=== PATIENT | male | born 1930 | race Caucasian/White ===

== ENCOUNTER 2016-10-05 10:42 | Emergency (ER) | payer MEDICARE, OTHER ==
--- NOTE | 2016-10-05 12:35 | ED ---
Lower Extremity - HPI Summary HPI Summary: Patient presents to ED 1 day s/p mechanical fall with left knee and ankle pain. Unknown if he twisted his ankle. He states he may have had fell directly onto the left knee, but denies anterior knee pain. Pain is discretely located over the lateral knee with swelling behind the left knee. He states the swelling was acute onset after injury, but has been intermittent for many years , usually after using the extremity too much. He has been ambulating, but with mild amount of pain. Denies pain medications or NSAIDS. Appt with Dr. Diaz "in a few weeks." He takes a baby aspirin daily and denies SOB or chest pain. Denies numbness, tingling, temperature or color changes to the area. - History of Current Complaint Chief Complaint: EDExtremityLower Stated Complaint: FALL/LT LEG PAIN Time Seen by Provider: 10/05/16 11:04 Hx Obtained From: Patient Mechanism Of Injury: Fall From A Standing Position Onset of Pain: Immediate Onset/Duration: Days Severity Initially: Mild Severity Currently: Mild Pain Intensity: 5 Pain Scale Used: 0-10 Numeric Timing: Constant Location: Is Discrete @ - lateral left knee with mild swelling associated Aggravating Factor(s): Standing, Ambulation, Weight Bearing Alleviating Factor(s): Rest Able to Bear Weight: Yes - Risk Factors Gout Risk Factors: Age Over 40, Male DVT Risk Factors: Negative Septic Arthritis Risk Factor: Negative - Allergies/Home Medications Allergies/Adverse Reactions: Allergies Allergy/AdvReac Type Severity Reaction Status Date / Time Epoetin [From Epogen] Allergy Severe Anaphylatic Verified 10/05/16 10:44 Shock Atorvastatin Allergy See Comment Verified 10/05/16 10:44 Oxycodone [From Percocet] Allergy See Comment Verified 10/05/16 10:44 PMH/Surg Hx/FS Hx/Imm Hx Previously Healthy: Yes - see below Endocrine/Hematology History: Reports: Hx Anticoagulant Therapy, Hx Thyroid Disease - hypothyroid Denies: Hx Diabetes Cardiovascular History: Reports: Hx Aneurysm - AAA, Hx Congestive Heart Failure , Hx Hypercholesterolemia, Hx Hypertension, Other Cardiovascular Problems/ Disorders - carotid stenosis Denies: Hx Deep Vein Thrombosis, Hx Myocardial Infarction, Hx Pacemaker/ICD Respiratory History: Reports: Hx Chronic Obstructive Pulmonary Disease (COPD) - Suspect with smoking history., Hx Sleep Apnea Denies: Hx Asthma, Hx Lung Cancer, Hx Pneumonia, Hx Pulmonary Embolism GI History: Reports: Hx Gall Bladder Disease, Hx Ulcer, Other GI Disorders - hx ulcer Denies: Hx Gastrointestinal Bleed History: Reports: Hx Dialysis - 2000 failure post surgery with dialysis for 2 -3 months per pt, Hx Renal Disease - He was on dialysis in the past around the time he had his AAA repairl., Other Problems/Disorders - renal failure 1999 per pt 2-3 months post surgery Denies: Hx Kidney Stones Musculoskeletal History: Reports: Hx Arthritis, Other Musculoskeletal History - neuropathy, back surgery Sensory History: Reports: Hx Contacts or Glasses, Hx Hearing Aid, Hx Hearing Problem Opthamlomology History: Reports: Hx Contacts or Glasses Neurological History: Reports: Hx Nerve Disease - s/t aneurism sx, Other Neuro Impairments/Disorders Denies: Hx Dementia, Hx Migraine, Hx Seizures, Hx Transient Ischemic Attacks (TIA) Psychiatric History: Denies: Hx Anxiety, Hx Depression, Hx Schizophrenia, Hx Bipolar Disorder - Cancer History Cancer Type, 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 RIGHT shoulder surgery Infectious Disease History: No Infectious Disease History: Denies: Traveled Outside the [place] in Last 30 Days - Family History Known Family History: Positive: Cardiac Disease - Social History Occupation: Retired Lives: With Family Alcohol Use: None Hx Substance Use: No Substance Use Type: Reports: None Hx Tobacco Use: Yes Smoking Status (MU): Former Smoker Review of Systems Constitutional: Negative Eyes: Negative Cardiovascular: Negative Respiratory: Negative Positive: no symptoms reported, see HPI Positive: Arthralgia, Myalgia Skin: Negative Neurological: Negative All Other Systems Reviewed And Are Negative: Yes Physical Exam - Summary Physical Exam Summary: Thorough physical exam was performed, focusing on knee special tests. Pain on palpation over lateral aspect and superior aspect of knee with mild amount of effusion. Due to patient pain around injury, physical exam was limited. Valgus and varus force without pain. No posterior sag sign, -posterior drawer test, - anterior drawer test. Quadriceps active test negative. Mcmurrys test not performed d/t patients instability. No laxity in the joint noted. No temperature change or pallor noted bilaterally. No ecchymosis noted over knee. No lesion or disruption of skin is seen. Able to bear weight. Pulses intact bilaterally. Triage Information Reviewed: Yes Vital Signs On Initial Exam: Initial Vitals Temp Pulse Resp BP Pulse Ox 98.4 F 42 16 133/49 97 10/05/16 10:45 10/05/16 10:45 10/05/16 10:45 10/05/16 10:45 10/05/16 10:45 Vital Signs Reviewed: Yes Appearance: Positive: Well-Appearing, Well-Nourished Skin: Positive: Warm, Skin Color Reflects Adequate Perfusion Head/Face: Positive: Normal Head/Face Inspection Eyes: Positive: EOMI, GLENNY, Conjunctiva Clear Neck: Positive: Supple, No Lymphadenopathy Respiratory/Lung Sounds: Positive: Clear to Auscultation, Breath Sounds Present Cardiovascular: Positive: Normal, RRR, Pulses are Symmetrical in both Upper and Lower Extremities Musculoskeletal: Positive: Pain @ - lateral left knee with mild swelling associated Neurological: Positive: Sensory/Motor Intact, Alert, Oriented to Person Place, Time, Speech Normal Psychiatric: Positive: Normal AVPU Assessment: Alert Diagnostics - Vital Signs Vital Signs Temp Pulse Resp BP Pulse Ox 10/05/16 11:04 98.4 F 51 16 133/49 99 10/05/16 10:45 98.4 F 42 16 133/49 97 - Laboratory Lab Statement: Any lab studies that have been ordered have been reviewed, and results considered in the medical decision making process. Lower Extremity Course/Dx - Course Course Of Treatment: Patient sent to imaging. Xray negative for fracture or other acute findings. Soft tissue swelling noted over the knee. Knee was page wrapped to patient comfort to allow for immobilization for this period of time. Patient given orthopedic follow up in 5-7 days. Encouraged Ibuprofen 600mg three times daily with meals for pain. Return precautions given. Educated patient regarding knee injuries and healing time and the possibility of further evaluation and imaging as orthopedist sees fit. - Diagnoses Differential Diagnosis/HQI/PQRI: Positive: Contusion, Fracture (Closed), Fracture (Open), Sprain Provider Diagnoses: Knee contusion Discharge - Discharge Plan Condition: Stable Disposition: HOME Patient Education Materials: Swollen Knee Joint (ED), Knee Pain (ED) Referrals: Maricarmen Moyer MD [Primary Care Provider] - Additional Instructions: Follow up with Dr. Diaz next week. Continue with your medications as directed
--- NOTE | 2016-10-05 13:11 | RAD ---
Indication: Left ankle swelling. 3 views of left ankle demonstrates no fracture. Ankle mortise is intact. No other bone or joint abnormality is identified. IMPRESSION: No fracture of the left ankle is noted.
--- NOTE | 2016-10-05 13:13 | RAD ---
Indication: Left knee pain. 4 views of left knee demonstrates joint space narrowing in the medial compartment with osteophyte formation. There is a small joint effusion noted. Degenerative changes of the patellofemoral joint is noted. IMPRESSION: Degenerative changes medial compartment left knee without fracture. Small joint effusion and degenerative changes of the patellofemoral joint is noted.
[2016-10-05 13:48] VITALS: BP 126/54
== END 2016-10-05 13:47 | disposition home or self-care (01) ==
LOC: ED 10:42
DX: S80.02XA Contusion of left knee, initial encounter (principal); W19.XXXA Unspecified fall, initial encounter; Y93.9 Activity, unspecified; Y92.9 Unspecified place or not applicable; Z87.891 Personal history of nicotine dependence
CPT/HCPCS: 99282

== ENCOUNTER 2017-08-09 17:12 | Inpatient (IN) | payer MEDICARE, OTHER ==
[2017-08-09] MEDS ORDERED: NS 0.9% 1000 ML* 1,000 ML IV ONE (17:28)
--- NOTE | 2017-08-09 17:44 | RAD ---
Indication: Stroke weakness. CT of the brain was performed without IV contrast. Ventricular structures are midline. No midline shift is noted. There is central and cortical atrophy noted. Periventricular lucency consistent with chronic ischemic White matter change is noted. No intracranial mass or hemorrhage is noted. Mastoid air cells are well aerated. Mucosal thickening with air-fluid levels are noted in the maxillary sinuses bilaterally. IMPRESSION: No intracranial mass or hemorrhage is noted. Chronic ischemic White matter change is noted. Bilateral maxillary sinusitis. Findings discussed with Dr. Tucker at 1740 hours.
[2017-08-09] MEDS ORDERED: niCARdipine 0.1MG/ML IVPREMIX* 20 MG/200 ML BAG IV ONE (17:57)
[2017-08-09] MEDS ORDERED: Iodixanol* (CONTRAST) 320 MG/ML 100 ML SDV IV ONE (18:07)
[2017-08-09 18:08] LABS: Urine Appearance Clear; Urine Blood 1+ (Negative); Urine Color Yellow; Urine Ketones Negative (Negative); Urine Protein 1+(30 mg/dL) (Negative); Urine Red Blood Cell 1+(3-5/hpf) (Absent); Urine Specific Gravity 1.014 (1.010-1.030); Urine Urobilinogen Negative (Negative); Urine White Blood Cell Trace(0-5/hpf) (Absent)
[2017-08-09 18:09] LABS: Hematocrit 33 % (42-52); Hemoglobin 10.9 g/dl (14.0-18.0); Mean Corpuscular HGB Conc 33 g/dl (31-36); Mean Corpuscular Hemoglobin 32 pg (27-31); Mean Corpuscular Volume 94 fL (80-94); Mean Platelet Volume 8.4 um3 (7.4-10.4); Platelet Count 174 10^3/ul (150-450); Red Blood Count 3.47 10^6/ul (4.0-5.4); Red Cell Distribution Width 16 % (10.5-15); White Blood Count 14.5 10^3/ul (3.5-10.8)
[2017-08-09] MEDS ORDERED: Acetaminophen TAB* 325 MG PO ONE (18:14)
[2017-08-09] MEDS ORDERED: Acetaminophen TAB* 325 MG ONE (18:16)
[2017-08-09 18:26] LABS: EGFR Non-African American 58.2 (>60)
[2017-08-09] MEDS ORDERED: Piperacillin/Tazobac ADVAN(*) 3.375 GM in NS 0.9% 100 ML* 100 ML IVPB ONE (18:45)
--- NOTE | 2017-08-09 18:48 | RAD ---
Indication: Cold grade. Single frontal view of the chest performed at 1813 hours was reviewed. Comparison is made with previous exam dated September 16, 2015. No mediastinal shift is noted. Heart is of normal size and configuration. Lung pizano appear clear. Patient is status post transsternal thoracotomy. IMPRESSION: NO ACTIVE CARDIOPULMONARY DISEASE IS NOTED.
[2017-08-09 18:52] LABS: ABS Basophils 0.1 10^3/ul (0-0.2); ABS Eosinophils 0.1 10^3/ul (0-0.6); ABS Lymphocytes 0.6 10^3/ul (1.0-4.8); ABS Monocytes 0.7 10^3/ul (0-0.8); ABS Nucleated RBC 0 10^3/ul; Eosinophil % 0.8 % (0-6); Lymphocyte % 4.5 % (25-47); Nucleated Red Blood Cells % 0
[2017-08-09 18:53] LABS: INR 1.01 (0.77-1.02)
--- NOTE | 2017-08-09 18:55 | RAD ---
Indication: Stroke. Contrast: Administered 80.3 ml of VISAPAQUE 320 mg/ml CTA of the neck and head was performed after IV contrast administration. Coronal and sagittal reconstructed images were obtained. Comparison is made with previous exam dated October 29, 2012. Atherosclerotic aortic arch is noted. Origins of the great vessels are unremarkable although there is marked tortuosity of the innominate artery. The common carotid arteries bilaterally are grossly unremarkable. Minimal calcific plaque is noted in the midportion of the common carotid arteries bilaterally. Calcification of the origins of the internal carotid arteries is noted. The vertebral arteries demonstrates no significant stenosis. No evidence of carotid artery or vertebral artery dissection is noted. The intracranial circulation demonstrates intracavernous portion of the internal carotid artery to be atherosclerotic. The anterior and middle cerebral arteries are unremarkable. No aneurysmal dilatation or branch occlusion is noted. Basilar artery and posterior cerebral arteries also demonstrates no evidence of branch occlusion of the posterior cerebral artery. There appears to be a basilar tip in the measuring 7 x 5 mm. No branch occlusion is noted. Emphysematous changes are noted. 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 This is unchanged from October 29, 2012. No branch occlusion is identified. Atherosclerosis of the origins of the internal carotid arteries bilaterally.
[2017-08-09] MEDS ORDERED: Levofloxacin 750 MG IVPREMIX(* 750 MG/150 ML BAG IVPB ONE (19:05)
[2017-08-09] MEDS ORDERED: Vancomycin(*) 1,250 MG in NS 0.9% 250 ML* 250 ML IVPB ONE (19:05)
--- NOTE | 2017-08-09 19:48 | ED ---
Tejas Fegruson Stephanie, scribed for Fermin Tucker MD on 08/09/17 at 1734 . Neurological HPI - HPI Summary HPI Summary: The pt is an 86 y/o M BIBA to the ED with c/o weakness that began on . Symptoms include speech difficulty and bilateral UE and LE heaviness. He denies CP, nausea and abd pain. - History of Current Complaint Stated Complaint: WEAKNESS/FEVER Time Seen by Provider: 08/09/17 17:21 Hx Obtained From: Patient Onset/Duration: Sudden Onset, Started days ago - 2, Still Present Timing: Constant Current Severity: Mild Pain Intensity: 0 Pain Scale Used: 0-10 Numeric Character: Weak, Motor Weakness, Impaired Speech Aggravating: Unknown Alleviating: Nothing Associated Signs and Symptoms: Positive: Confusion, Weakness, Impaired Speech. Negative: Nausea/Vomiting, Chest Pain - Additional Pertinent History Primary Care Physician: HUGO - Allergy/Home Medications Allergies/Adverse Reactions: Allergies Allergy/AdvReac Type Severity Reaction Status Date / Time MS Epoetin Frank [From Epogen] Allergy Severe Anaphylatic Verified 10/05/16 10:44 Shock MS Atorvastatin Allergy See Comment Verified 10/05/16 10:44 [Atorvastatin] MS Oxycodone [From Percocet] Allergy See Comment Verified 10/05/16 10:44 Home Medications: Home Medications Acetaminophen [Tylenol Extra Strength] 500 mg PO BID PRN 08/09/17 [History Confirmed 08/09/17] Aspirin EC TAB* [Ecotrin EC Low Dose 81 MG*] 81 mg PO QAM 08/09/17 [History Confirmed 08/09/17] Atenolol TAB* [Tenormin TAB* 50 MG] 25 mg PO DAILY 08/09/17 [History Confirmed 08/09/17] Cetirizine* [ZyrTEC 10 MG TAB*] 10 mg PO QPM PRN 08/09/17 [History Confirmed 09/19] Clopidogrel TAB* [Plavix TAB*] 75 mg PO QPM 08/09/17 [History Confirmed 08/09/17 ] Docusate CAP* [Colace Cap*] 250 mg PO QPM 08/09/17 [History Confirmed 08/09/17] Duloxetine HCl 40 mg PO QPM 08/09/17 [History Confirmed 08/09/17] Fluticasone NASAL SPRAY 50MCG* [Flonase NASAL SPRAY 50MCG*] 2 spray BOTH NARES DAILY PRN 08/09/17 [History Confirmed 08/09/17] Gabapentin CAP(*) [Neurontin 400 mg CAP(*)] 900 mg PO BID 08/09/17 [History Confirmed 08/09/17] L.acidoph,Paracasei, B.lactis [Probiotic] 1 each PO QAM 08/09/17 [History Confirmed 08/09/17] Levothyroxine TAB* [Synthroid TAB*] 112 mcg PO QAM 08/09/17 [History Confirmed 08/09/17] Losartan TAB* [Cozaar TAB*] 50 mg PO QAM 08/09/17 [History Confirmed 08/09/17] Multivitamins/Minerals TAB* [Theragran/minerals TAB*] 1 tab PO QAM 08/09/17 [ History Confirmed 08/09/17] Nitroglycerin TAB 0.4 MG* 0.4 mg SL Q5M PRN 08/09/17 [History Confirmed 08/09/17 ] Pantoprazole TAB (NF) [Protonix TAB (NF)] 40 mg PO QAM 08/09/17 [History Confirmed 08/09/17] Rosuvastatin (NF) [Crestor (NF)] 20 mg PO QPM 08/09/17 [History Confirmed ] PMH/Surg Hx/FS Hx/Imm Hx Endocrine/Hematology History: Reports: Hx Anticoagulant Therapy, Hx Thyroid Disease - hypothyroid Denies: Hx Diabetes Cardiovascular History: Reports: Hx Aneurysm - AAA, Hx Congestive Heart Failure , Hx Hypercholesterolemia, Hx Hypertension, Other Cardiovascular Problems/ Disorders - carotid stenosis Denies: Hx Deep Vein Thrombosis, Hx Myocardial Infarction, Hx Pacemaker/ICD Respiratory History: Reports: Hx Chronic Obstructive Pulmonary Disease (COPD) - Suspect with smoking history., Hx Sleep Apnea Denies: Hx Asthma, Hx Lung Cancer, Hx Pneumonia, Hx Pulmonary Embolism GI History: Reports: Hx Gall Bladder Disease, Hx Ulcer, Other GI Disorders - hx ulcer Denies: Hx Gastrointestinal Bleed History: Reports: Hx Dialysis - 2000 failure post surgery with dialysis for 2 -3 months per pt, Hx Renal Disease - He was on dialysis in the past around the time he had his AAA repairl., Other Problems/Disorders - renal failure 1999 per pt 2-3 months post surgery Denies: Hx Kidney Stones Musculoskeletal History: Reports: Hx Arthritis, Other Musculoskeletal History - neuropathy, back surgery Sensory History: Reports: Hx Contacts or Glasses, Hx Hearing Aid, Hx Hearing Problem Opthamlomology History: Reports: Hx Contacts or Glasses Neurological History: Reports: Hx Nerve Disease - s/t aneurism sx, Other Neuro Impairments/Disorders Denies: Hx Dementia, Hx Migraine, Hx Seizures, Hx Transient Ischemic Attacks (TIA) Psychiatric History: Denies: Hx Anxiety, Hx Depression, Hx Schizophrenia, Hx Bipolar Disorder - Cancer History Cancer Type, 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 RIGHT shoulder surgery Infectious Disease History: No Infectious Disease History: Denies: Traveled Outside the [place] in Last 30 Days - Family History Known Family History: Positive: Cardiac Disease - Social History Occupation: Retired Lives: With Family Alcohol Use: None Hx Substance Use: No Substance Use Type: Reports: None Hx Tobacco Use: Yes Smoking Status (MU): Former Smoker Review of Systems Positive: Fever Negative: Chest Pain Negative: Abdominal Pain, Nausea Neurological: Other - Bilateral UE and LE heaviness Positive: Weakness All Other Systems Reviewed And Are Negative: Yes Physical Exam - Summary Physical Exam Summary: Appearance: Well appearing, no pain distress Skin: warm, dry, reflects adequate perfusion Head/face: normal Eyes: EOMI, GLENNY ENT: normal Neck: supple, non-tender Respiratory: CTA, breath sounds present Cardiovascular: Occasional irregularity of the heart with a soft murmur heard best at the apex, strong pulses. Abdomen: non-tender, soft Bowel Sounds: present Musculoskeletal: normal, strength/ROM intact Neuro: alert with mild aphasia difficulty with word finding, can name simple objects, weakness with L greater than R. Triage Information Reviewed: Yes Vital Signs On Initial Exam: Initial Vitals Temp Pulse Resp BP Pulse Ox 102.6 F 87 31 198/66 98 08/09/17 17:15 08/09/17 17:15 08/09/17 17:15 08/09/17 17:15 08/09/17 17:15 Vital Signs Reviewed: Yes Procedures - Lumbar Puncture Midline Position: Sitting Aseptic Technique: Local Anesthesia, Lidocaine Anesthesia Used: 1.0% Lido Spinal Needle Used: 22 Gauge Lumbar Puncture Note: The patient and his were consented prior to the procedure. A timeout was performed. The patient was placed sitting. He has a history of lumbar fusion. A level higher than the effusion was selected. I initially tried a L3-L4 and was unsuccessful. L2-L3 with successful. 3 tubes were filled. First tube was initially cloudy but then the sample cleared. Fluid was clear and colorless at last tube. He tolerated this well and there were no complications. Sample was sent to the lab for analysis. Diagnostics - Vital Signs Vital Signs Temp Pulse Resp BP Pulse Ox 08/09/17 17:15 102.6 F 87 31 198/66 98 - Laboratory Lab Results: Lab Results 08/09/17 08/09/17 08/09/17 Range/Units 17:52 17:56 17:56 WBC 14.5 H (3.5-10.8) 10^3/ul RBC 3.47 L (4.0-5.4) 10^6/ul Hgb 10.9 L (14.0-18.0) g/dl Hct 33 L (42-52) % MCV 94 (80-94) fL MCH 32 H (27-31) pg MCHC 33 (31-36) g/dl RDW 16 H (10.5-15) % Plt Count 174 (150-450) 10^3/ul MPV 8.4 (7.4-10.4) um3 Neut % (Auto) 89.7 H (38-83) % Lymph % (Auto) 4.5 L (25-47) % [place] % (Auto) 4.6 (0-7) % Eos % (Auto) 0.8 (0-6) % Baso % (Auto) 0.4 (0-2) % Absolute Neuts (auto) 13.0 H (1.5-7.7) 10^3/ul Absolute Lymphs (auto) 0.6 L (1.0-4.8) 10^3/ul Absolute Monos (auto) 0.7 (0-0.8) 10^3/ul Absolute Eos (auto) 0.1 (0-0.6) 10^3/ul Absolute Basos (auto) 0.1 (0-0.2) 10^3/ul Absolute Nucleated RBC 0 10^3/ul Nucleated RBC % 0 INR (Anticoag Therapy) 1.01 (0.77-1.02) APTT 20.8 L (26.0-36.3) seconds Sodium (139-145) mmol/L Potassium (3.5-5.0) mmol/L Chloride (101-111) mmol/L Carbon Dioxide (22-32) mmol/L Anion Gap (2-11) mmol/L BUN (6-24) mg/dL Creatinine (0.67-1.17) mg/dL Est GFR ( Amer) (>60) Est GFR (Non-Af Amer) (>60) BUN/Creatinine Ratio (8-20) Glucose (70-100) mg/dL Lactic Acid (0.5-2.0) mmol/L Calcium (8.6-10.3) mg/dL Total Bilirubin (0.2-1.0) mg/dL AST (13-39) U/L ALT (7-52) U/L Alkaline Phosphatase (34-104) U/L Troponin I (<0.04) ng/mL Total Protein (6.4-8.9) g/dL Albumin (3.2-5.2) g/dL Globulin (2-4) g/dL Albumin/Globulin Ratio (1-3) Triglycerides mg/dL Cholesterol mg/dL LDL Cholesterol mg/dL HDL Cholesterol mg/dL Urine Color Yellow Urine Appearance Clear Urine pH 5.0 (5-9) Ur Specific [place] 1.014 (1.010-1.030) Urine Protein 1+(30 mg/dl) A (Negative) Urine Ketones Negative (Negative) Urine Blood 1+ A (Negative) Urine Nitrate Negative (Negative) Urine Bilirubin Negative (Negative) Urine Urobilinogen Negative (Negative) Ur Leukocyte Esterase Negative (Negative) Urine WBC (Auto) Trace(0-5/hpf) (Absent) Urine RBC (Auto) 1+(3-5/hpf) A (Absent) Urine Bacteria Absent (Absent) Urine Glucose Negative (Negative) Blood Type Antibody Screen Antibody Identification Direct Antiglob Test 08/09/17 08/09/17 08/09/17 Range/Units 17:56 17:56 17:56 WBC (3.5-10.8) 10^3/ul RBC (4.0-5.4) 10^6/ul Hgb (14.0-18.0) g/dl Hct (42-52) % MCV (80-94) fL MCH (27-31) pg MCHC (31-36) g/dl RDW (10.5-15) % Plt Count (150-450) 10^3/ul MPV (7.4-10.4) um3 Neut % (Auto) (38-83) % Lymph % (Auto) (25-47) % [place] % (Auto) (0-7) % Eos % (Auto) (0-6) % Baso % (Auto) (0-2) % Absolute Neuts (auto) (1.5-7.7) 10^3/ul Absolute Lymphs (auto) (1.0-4.8) 10^3/ul Absolute Monos (auto) (0-0.8) 10^3/ul Absolute Eos (auto) (0-0.6) 10^3/ul Absolute Basos (auto) (0-0.2) 10^3/ul Absolute Nucleated RBC 10^3/ul Nucleated RBC % INR (Anticoag Therapy) (0.77-1.02) APTT (26.0-36.3) seconds Sodium 136 L (139-145) mmol/L Potassium 4.5 (3.5-5.0) mmol/L Chloride 102 (101-111) mmol/L Carbon Dioxide 21 L (22-32) mmol/L Anion Gap 13 H (2-11) mmol/L BUN 31 H (6-24) mg/dL Creatinine 1.19 H (0.67-1.17) mg/dL Est GFR ( Amer) 74.9 (>60) Est GFR (Non-Af Amer) 58.2 (>60) BUN/Creatinine Ratio 26.1 H (8-20) Glucose 186 H (70-100) mg/dL Lactic Acid 2.2 H* (0.5-2.0) mmol/L Calcium 9.8 (8.6-10.3) mg/dL Total Bilirubin 0.60 (0.2-1.0) mg/dL AST 19 (13-39) U/L ALT 14 (7-52) U/L Alkaline Phosphatase 60 (34-104) U/L Troponin I 0.02 (<0.04) ng/mL Total Protein 8.2 (6.4-8.9) g/dL Albumin 4.6 (3.2-5.2) g/dL Globulin 3.6 (2-4) g/dL Albumin/Globulin Ratio 1.3 (1-3) Triglycerides 84 mg/dL Cholesterol 111 mg/dL LDL Cholesterol 63 mg/dL HDL Cholesterol 31.4 mg/dL Urine Color Urine Appearance Urine pH (5-9) Ur Specific [place] (1.010-1.030) Urine Protein (Negative) Urine Ketones (Negative) Urine Blood (Negative) Urine Nitrate (Negative) Urine Bilirubin (Negative) Urine Urobilinogen (Negative) Ur Leukocyte Esterase (Negative) Urine WBC (Auto) (Absent) Urine RBC (Auto) (Absent) Urine Bacteria (Absent) Urine Glucose (Negative) Blood Type O Positive Antibody Screen Positive Antibody Identification Pending Direct Antiglob Test Pending Result Diagrams: 08/09/17 17:56 08/09/17 17:56 Lab Statement: Any lab studies that have been ordered have been reviewed, and results considered in the medical decision making process. - Radiology CXR Xray Interpretation: No Acute Changes Radiology Interpretation Completed By: Radiologist - NO CARDIOPULMONARY DISEASE IS NOTED. ED physician has reviewed this report. - CT Brain CT Interpretation: No Acute Changes CT Interpretation Completed By: ED Physician - Negative at 17:40, Radiologist - No intracranial mass or hemorrhage is noted. Chronic ischemic White matter change is noted. Bilateral maxillary sinusitis. Findings discussed with Dr. Tucker at 1740 hours. ED physician has reviewed this report. 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 This is unchanged from October 29, 2012. No branch occlusion is identified. Atherosclerosis of the origins of the internal carotid arteries bilaterally. ED physician has reviewed this report. - EKG 17:23 Cardiac Rate: NL EKG Rhythm: Sinus Rhythm - [address] Segment: Non-Specific EKG Interpretation: 1st degree AV block, nml axis, LVH criteria NIH Scale - NIH Scale Level of Consciousness: Alert/Keenly Responsive Ask Patient the Month and His/Her Age: Neither Correct/Aphasic Ask Pt to Open/Close Eyes and Coin Purse Assembler/Release Non-Paretic Hand: Both Correctly Best Gaze (Only Horizontal Eye Movement): Normal Visual Field Testing: No Visual Loss Facial Paresis-Pt to Smile & Close Eyes or Grimace Symmetry: Normal/Symmetrical Motor Function - Right Arm: No Drift-Holds 10 Seconds Motor Function - Left Arm: Drifts LT 10 seconds Motor Function - Right Leg: Effort Against [place] Motor Function - Left Leg: Effort Against [place] Limb Ataxia-Must be out of Proportion to Weakness Present: Absent Sensory (Use Pinprick to Test Arms/Legs/Trunk/Face): Normal Best Language (Describe Picture, Name Items): Some Loss Dysarthria (Read Several Words): Normal Extinction and Inattention: Inattention Total Score: 9 Re-Evaluation - Re-Evaluation First Eval Re-Evaluation Time: 18:14 Change: Worse - At this time the pt is incontinent and has a fever. Second Eval Re-Evaluation Time: 18:20 Change: Unchanged - and EMS noted that the pt was shivering. The pt's wants to postpone TPA until the neurologist is notified. Third Eval Re-Evaluation Time: 19:06 Change: Improved - The pt is running 105 F fever temporally and 103 F rectally. Stroke neurologist agreed no TPA. The patient's mental status has cleared however and his NIH stroke score at this time is down to 2. This is felt due to his chronic left lower sternal weakness and mild confusion. Course/Dx - Course Course Of Treatment: At 17:58, ED physician spoke to from [facility] who said give TPA when BP is within safe limits. At 19: 12, ED physician prepped a lumbar puncture. Patient presented with dysarthria, aphasia, confusion with an uncertain onset time. The patient's resented after the stroke alert was called. Stroke neurologist was involved in after a negative head CT asked for TPA to be initiated. It was then discovered the patient was febrile at 103. As such, and after consulting his we held off on TPA and look for infectious source. Urine was clean, chest x-ray also. White blood cell count was slightly elevated as well as lactate. Tele neurology evaluation was obtained with stroke neurologist. They agreed that this is encephalopathy likely being caused by fever or the cause of fever. They agree that no tPA being used. Patient was hydrated, treated for fever and his mental status and NIH stroke score were improving. Given his encephalopathy a lumbar puncture was performed. He had been ordered triple antibiotics. The hospitalist was contacted and will evaluate the patient at the bedside for admission. The patient is improving. We'll continue to hydrate despite his history of heart failure with frequent reassessments. At time of admission his capillary refill was brisk his mental status was clearing his blood pressure was 160 systolic. - Differential Dx Differential Diagnoses Neuro: Positive: Other - Stroke syndrome, metabolic, infectious etiology with sepsis is a possibility - Diagnoses Provider Diagnoses: Encephalopathy acute, Febrile illness, acute, Severe sepsis - Physician Notifications Discussed Care Of Patient With: Fritz Infante Time Discussed With Above Provider: 17:30 [facility] if needed. Stroke neurologist at [facility] was utilized. He performed consult over video conferencing. Dr. Gonzalez from hospitalist service evaluated the patient and will admit. - Critical Care Time Critical Care Time: 30-74 min - 45 min. critical care time is exclusive of separately billable procedures Discharge - Sign-Out/Discharge Documenting (check all that apply): Discharge/Admit/Transfer - Discharge Plan Condition: Guarded Disposition: ADMITTED TO [facility] Referrals: Maricarmen Moyer MD [Primary Care Provider] - - Billing Disposition and Condition Condition: GUARDED Disposition: Admitted to [facility] The documentation as recorded by the Tejas do Stephanie accurately reflects the service I personally performed and the decisions made by me, Fermin Tucker MD.
[2017-08-09 19:49] LABS: Body Fluid Source Cerebral Spinal
[2017-08-09] MEDS ORDERED: Acetaminophen TAB* 325 MG PO PRN (20:36)
[2017-08-09] MEDS ORDERED: Melatonin 3 MG TAB PO PRN (20:36)
[2017-08-09] MEDS ORDERED: Ondansetron ODT TAB* 4 MG PO PRN (20:38)
--- NOTE | 2017-08-09 20:40 | HP ---
H&P (Free Text) History and Physical: PCP: Kat Moyer MD Date/Time: 08/09/20172019 CC: generalized weakness HPI: Mr Leo is an 86YO male poor historian HX AVR which he reports is mechanical but denies being placed on anticoagulation, CAD/CABG, PAOD s/p LLE revascularization being monitored for R carotid stenosis, HTN, HLD, hypothyroidism, prostate CA s/p radio-TX & leupron, CKD stg 3, anemia of chronic disease, PUD who was seen by his PCP this AM for routine appointment and without complaints. Afterwards, he went shopping with his and upon returning to the car informed his his legs were weak. By their arrival home , he was unable to stand and walk into their home. His son was called and assisted him. He then developed rigors prompting EMS to be called for transport. Upon arrival, initial concern was for CVA which was clinically ruled out. He was noted to be febrile to 40.9C and a sepsis work up ensued as his WBCs returned at 14k, & he was tachypneic. No source was found and so an LP has been performed thus far returning a glucose of 105 and protein of 70 suggesting a viral etiology. He does admit to a cough with mild yellow sputum production, but denies SOB, chest pain, palpitations, abdominal pain, N/V/D, rash, changes in bowel/bladder, or other issues. PMedHx AVR which he reports is mechanical but denies being placed on anticoagulation CAD/CABG PAOD s/p LLE revascularization being monitored for R carotid stenosis HTN HLD hypothyroidism prostate CA s/p radio-TX & leupron CKD stg 3 anemia of chronic disease PUD Ambulatory Orders Acetaminophen [Tylenol Extra Strength] 500 mg PO BID PRN 08/09/17 Aspirin EC TAB* [Ecotrin EC Low Dose 81 MG*] 81 mg PO QAM 08/09/17 Atenolol TAB* [Tenormin TAB* 50 MG] 25 mg PO DAILY 08/09/17 Cetirizine* [ZyrTEC 10 MG TAB*] 10 mg PO QPM PRN 08/09/17 Clopidogrel TAB* [Plavix TAB*] 75 mg PO QPM 08/09/17 Docusate CAP* [Colace Cap*] 250 mg PO QPM 08/09/17 Duloxetine HCl 40 mg PO QPM 08/09/17 Fluticasone NASAL SPRAY 50MCG* [Flonase NASAL SPRAY 50MCG*] 2 spray BOTH NARES DAILY PRN 08/09/17 Gabapentin CAP(*) [Neurontin 400 mg CAP(*)] 900 mg PO BID 08/09/17 L.acidoph,Paracasei, B.lactis [Probiotic] 1 each PO QAM 08/09/17 Levothyroxine TAB* [Synthroid TAB*] 112 mcg PO QAM 08/09/17 Losartan TAB* [Cozaar TAB*] 50 mg PO QAM 08/09/17 Multivitamins/Minerals TAB* [Theragran/minerals TAB*] 1 tab PO QAM 08/09/17 Nitroglycerin TAB 0.4 MG* 0.4 mg SL Q5M PRN 08/09/17 Pantoprazole TAB (NF) [Protonix TAB (NF)] 40 mg PO QAM 08/09/17 Rosuvastatin (NF) [Crestor (NF)] 20 mg PO QPM 08/09/17 Allergies epoetin shakila [From [facility]] Allergy (Severe, Verified 08/09/17 20:51) Anaphylatic Shock STATES AFFECTED HIS BLOOD? 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; lives with his ; DNR code status FamHx: reviewed & non-contributory ROS: as above, otherwise reviewed and all were negative vitals: Vital Signs Temp 39.4 C 08/09/17 19:06 Pulse 86 08/09/17 19:03 Resp 29 08/09/17 19:03 BP 153/65 08/09/17 19:03 Pulse Ox 98 08/09/17 19:03 Intake & Output 08/08/17 08/09/17 08/09/17 23:59 11:59 23:59 Intake Total 102 Balance 102 Weight 83.915 kg Intake: IV Fluids 102 Constitutional: NAD, normally developed, overweight elderly white male HEENM: atraumatic; sclera/conjunctiva: anicteric/mildly injected OU; hearing: clinically mildly decreased; oropharynx: clear, mucosa tacky Neck: soft tissue: no nuchal rigidity; thyroid: normal Pulmonary: diminished bilaterally w/o wheeze or rhonchi, fair to good aeration, no accessory muscle use CV: RR/RR, normal S1S2, no carotid bruit, no jugular venous distention, 2+ B DP/ PT, trace BLE edema Abdominal: soft, non-distended, non-tender, no rebound/guarding/rigidity, normoactive bowel sounds, no hepatosplenomegaly or masses, no costovertebral angle tenderness Musculoskeletal: general: grossly intact, non-tender Integumental: normal appearance and texture of exposed skin Psychiatric orientation: AA&O tO PP, loosely to situation affect: calm mood: cooperative eye contact: good content: mostly reliable responses: timely insight: fair Testing: Lab Results 08/09/17 08/09/17 08/09/17 Range/Units 17:52 17:56 17:56 WBC 14.5 H (3.5-10.8) 10^3/ul RBC 3.47 L (4.0-5.4) 10^6/ul Hgb 10.9 L (14.0-18.0) g/dl Hct 33 L (42-52) % MCV 94 (80-94) fL MCH 32 H (27-31) pg MCHC 33 (31-36) g/dl RDW 16 H (10.5-15) % Plt Count 174 (150-450) 10^3/ul MPV 8.4 (7.4-10.4) um3 Neut % (Auto) 89.7 H (38-83) % Lymph % (Auto) 4.5 L (25-47) % [place] % (Auto) 4.6 (0-7) % Eos % (Auto) 0.8 (0-6) % Baso % (Auto) 0.4 (0-2) % Absolute Neuts (auto) 13.0 H (1.5-7.7) 10^3/ul Absolute Lymphs (auto) 0.6 L (1.0-4.8) 10^3/ul Absolute Monos (auto) 0.7 (0-0.8) 10^3/ul Absolute Eos (auto) 0.1 (0-0.6) 10^3/ul Absolute Basos (auto) 0.1 (0-0.2) 10^3/ul Absolute Nucleated RBC 0 10^3/ul Nucleated RBC % 0 INR (Anticoag Therapy) 1.01 (0.77-1.02) APTT 20.8 L (26.0-36.3) seconds Sodium (139-145) mmol/L Potassium (3.5-5.0) mmol/L Chloride (101-111) mmol/L Carbon Dioxide (22-32) mmol/L Anion Gap (2-11) mmol/L BUN (6-24) mg/dL Creatinine (0.67-1.17) mg/dL Est GFR ( Amer) (>60) Est GFR (Non-Af Amer) (>60) BUN/Creatinine Ratio (8-20) Glucose (70-100) mg/dL Lactic Acid (0.5-2.0) mmol/L Calcium (8.6-10.3) mg/dL Total Bilirubin (0.2-1.0) mg/dL AST (13-39) U/L ALT (7-52) U/L Alkaline Phosphatase (34-104) U/L Troponin I (<0.04) ng/mL Total Protein (6.4-8.9) g/dL Albumin (3.2-5.2) g/dL Globulin (2-4) g/dL Albumin/Globulin Ratio (1-3) Triglycerides mg/dL Cholesterol mg/dL LDL Cholesterol mg/dL HDL Cholesterol mg/dL Urine Color Yellow Urine Appearance Clear Urine pH 5.0 (5-9) Ur Specific [place] 1.014 (1.010-1.030) Urine Protein 1+(30 mg/dl) A (Negative) Urine Ketones Negative (Negative) Urine Blood 1+ A (Negative) Urine Nitrate Negative (Negative) Urine Bilirubin Negative (Negative) Urine Urobilinogen Negative (Negative) Ur Leukocyte Esterase Negative (Negative) Urine WBC (Auto) Trace(0-5/hpf) (Absent) Urine RBC (Auto) 1+(3-5/hpf) A (Absent) Urine Bacteria Absent (Absent) Urine Glucose Negative (Negative) CSF Glucose (40-70) mg/dL CSF Total Protein (15-45) mg/dL Blood Type Antibody Screen Antibody Identification Direct Antiglob Test 06/07/18 06/07/18 06/07/18 Range/Units 17:56 17:56 17:56 WBC (3.5-10.8) 10^3/ul RBC (4.0-5.4) 10^6/ul Hgb (14.0-18.0) g/dl Hct (42-52) % MCV (80-94) fL MCH (27-31) pg MCHC (31-36) g/dl RDW (10.5-15) % Plt Count (150-450) 10^3/ul MPV (7.4-10.4) um3 Neut % (Auto) (38-83) % Lymph % (Auto) (25-47) % [place] % (Auto) (0-7) % Eos % (Auto) (0-6) % Baso % (Auto) (0-2) % Absolute Neuts (auto) (1.5-7.7) 10^3/ul Absolute Lymphs (auto) (1.0-4.8) 10^3/ul Absolute Monos (auto) (0-0.8) 10^3/ul Absolute Eos (auto) (0-0.6) 10^3/ul Absolute Basos (auto) (0-0.2) 10^3/ul Absolute Nucleated RBC 10^3/ul Nucleated RBC % INR (Anticoag Therapy) (0.77-1.02) APTT (26.0-36.3) seconds Sodium 136 L (139-145) mmol/L Potassium 4.5 (3.5-5.0) mmol/L Chloride 102 (101-111) mmol/L Carbon Dioxide 21 L (22-32) mmol/L Anion Gap 13 H (2-11) mmol/L BUN 31 H (6-24) mg/dL Creatinine 1.19 H (0.67-1.17) mg/dL Est GFR ( Amer) 74.9 (>60) Est GFR (Non-Af Amer) 58.2 (>60) BUN/Creatinine Ratio 26.1 H (8-20) Glucose 186 H (70-100) mg/dL Lactic Acid 2.2 H* (0.5-2.0) mmol/L Calcium 9.8 (8.6-10.3) mg/dL Total Bilirubin 0.60 (0.2-1.0) mg/dL AST 19 (13-39) U/L ALT 14 (7-52) U/L Alkaline Phosphatase 60 (34-104) U/L Troponin I 0.02 (<0.04) ng/mL Total Protein 8.2 (6.4-8.9) g/dL Albumin 4.6 (3.2-5.2) g/dL Globulin 3.6 (2-4) g/dL Albumin/Globulin Ratio 1.3 (1-3) Triglycerides 84 mg/dL Cholesterol 111 mg/dL LDL Cholesterol 63 mg/dL HDL Cholesterol 31.4 mg/dL Urine Color Urine Appearance Urine pH (5-9) Ur Specific [place] (1.010-1.030) Urine Protein (Negative) Urine Ketones (Negative) Urine Blood (Negative) Urine Nitrate (Negative) Urine Bilirubin (Negative) Urine Urobilinogen (Negative) Ur Leukocyte Esterase (Negative) Urine WBC (Auto) (Absent) Urine RBC (Auto) (Absent) Urine Bacteria (Absent) Urine Glucose (Negative) CSF Glucose (40-70) mg/dL CSF Total Protein (15-45) mg/dL Blood Type O Positive Antibody Screen Positive Antibody Identification Pending Direct Antiglob Test Pending 08/09/17 Range/Units 19:39 WBC (3.5-10.8) 10^3/ul RBC (4.0-5.4) 10^6/ul Hgb (14.0-18.0) g/dl Hct (42-52) % MCV (80-94) fL MCH (27-31) pg MCHC (31-36) g/dl RDW (10.5-15) % Plt Count (150-450) 10^3/ul MPV (7.4-10.4) um3 Neut % (Auto) (38-83) % Lymph % (Auto) (25-47) % [place] % (Auto) (0-7) % Eos % (Auto) (0-6) % Baso % (Auto) (0-2) % Absolute Neuts (auto) (1.5-7.7) 10^3/ul Absolute Lymphs (auto) (1.0-4.8) 10^3/ul Absolute Monos (auto) (0-0.8) 10^3/ul Absolute Eos (auto) (0-0.6) 10^3/ul Absolute Basos (auto) (0-0.2) 10^3/ul Absolute Nucleated RBC 10^3/ul Nucleated RBC % INR (Anticoag Therapy) (0.77-1.02) APTT (26.0-36.3) seconds Sodium (139-145) mmol/L Potassium (3.5-5.0) mmol/L Chloride (101-111) mmol/L Carbon Dioxide (22-32) mmol/L Anion Gap (2-11) mmol/L BUN (6-24) mg/dL Creatinine (0.67-1.17) mg/dL Est GFR ( Amer) (>60) Est GFR (Non-Af Amer) (>60) BUN/Creatinine Ratio (8-20) Glucose (70-100) mg/dL Lactic Acid (0.5-2.0) mmol/L Calcium (8.6-10.3) mg/dL Total Bilirubin (0.2-1.0) mg/dL AST (13-39) U/L ALT (7-52) U/L Alkaline Phosphatase (34-104) U/L Troponin I (<0.04) ng/mL Total Protein (6.4-8.9) g/dL Albumin (3.2-5.2) g/dL Globulin (2-4) g/dL Albumin/Globulin Ratio (1-3) Triglycerides mg/dL Cholesterol mg/dL LDL Cholesterol mg/dL HDL Cholesterol mg/dL Urine Color Urine Appearance Urine pH (5-9) Ur Specific [place] (1.010-1.030) Urine Protein (Negative) Urine Ketones (Negative) Urine Blood (Negative) Urine Nitrate (Negative) Urine Bilirubin (Negative) Urine Urobilinogen (Negative) Ur Leukocyte Esterase (Negative) Urine WBC (Auto) (Absent) Urine RBC (Auto) (Absent) Urine Bacteria (Absent) Urine Glucose (Negative) CSF Glucose 105 H (40-70) mg/dL CSF Total Protein 70 H (15-45) mg/dL Blood Type Antibody Screen Antibody Identification Direct Antiglob Test ECG, personally reviewed: sinus 1st degree AV block rate 88, ST depression V4-6/ I/II; improved compared to 09/16/2015 CXR, personally reviewed: IMPRESSION: NO ACTIVE CARDIOPULMONARY DISEASE IS NOTED. CT brain WO, personally reviewed: IMPRESSION: No intracranial mass or hemorrhage is noted. Chronic ischemic white matter change is noted. Bilateral maxillary sinusitis. 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 This is unchanged from October 29, 2012. No branch occlusion is identified. Atherosclerosis of the origins of the internal carotid arteries bilaterally. Impression: DIAGNOSIS & PLAN Primary sepsis 2nd ? source, suspect viral meningitis : given IV vancomycin, piperacillin/tazobactam, & levofloxacin in ED : plan to continue with vancomycin & ceftriaxone w/ acyclovir added : IVFs 30cc/kg bolus then 75cc/hr : blood & CSF CXs : CSF gram stain negative : supportive care B maxillary sinusitis : ABX as above mild lactic acidosis : IVFs, trend Secondary AVR which he reports is mechanical but denies being placed on anticoagulation : obtain records from his director television CAD/CABG : continue aspirin, clopidogrel, losartan, atenolol, & rosuvastatin PAOD s/p LLE revascularization being monitored for R carotid stenosis : continue rosuvastatin HTN : continue losartan & atenolol hypothyroidism : continue levothyroxine HX prostate CA s/p radio-TX & leupron : no acute issues CKD stg 3 : periodic monitoring anemia of chronic disease : stable, periodic monitoring PUD : continue pantoprazole depression : continue duloxetine Admission Rational: inpatient for sepsis of uncertain etiology requiring IV ABX & IVFs DVTp: SCDs, no anticoagulation given LP tonight Code Status: DNR HCP:
[2017-08-09] MEDS ORDERED: NS 0.9% 1000 ML* 1,500 ML IV SCH (20:45)
[2017-08-09] MEDS ORDERED: NS 0.9% 500 ML* 500 ML IV ONE (20:45)
[2017-08-09] MEDS ORDERED: NS 0.9% 1000 ML* 1,000 ML IV SCH (20:45)
[2017-08-09] MEDS ORDERED: NS 0.9% IVPB ONE (20:52)
[2017-08-09] MEDS ORDERED: ACYCLOVIR IVPB ONE (20:52)
[2017-08-09] MEDS ORDERED: Vancomycin per Pharmacy* NOTE FOLLOW UP SCH (21:00)
[2017-08-09] MEDS ORDERED: cefTRIAXone VIAL(*) 2,000 MG in NS 0.9% 50 ML* 50 ML IVPB SCH (22:00)
[2017-08-09] MEDS: Gabapentin CAP(*) 300 MG PO SCH (22:49)
[2017-08-09] MEDS: NS 0.9% 1000 ML* 1,000 ML IV ONE (23:00)
[2017-08-10] MEDS: NS 0.9% 1000 ML* 1,000 ML IV ONE ×2 (01:48→02:18)
[2017-08-10] MEDS: cefTRIAXone(*) 2 GM in NS 0.9% 100 ML* 100 ML IVPB SCH ×3 (02:11→22:29)
[2017-08-10] MEDS: Mometasone/Formoter 200/5 MDI INH SCH ×3 (02:17→20:20)
[2017-08-10] MEDS ORDERED: cefTRIAXone VIAL(*) 1,000 MG in NS 0.9% 50 ML* 50 ML IVPB SCH (03:00)
[2017-08-10] MEDS: Levothyroxine TAB* 112 MCG TAB PO SCH (05:55)
[2017-08-10 06:05] LABS: ABS Basophils 0 10^3/ul (0-0.2); ABS Eosinophils 0 10^3/ul (0-0.6); ABS Lymphocytes 1.2 10^3/ul (1.0-4.8); ABS Monocytes 1.5 10^3/ul (0-0.8); ABS Neutrophils 12.2 10^3/ul (1.5-7.7); ABS Nucleated RBC 0 10^3/ul; Eosinophil % 0.1 % (0-6); Hematocrit 23 % (42-52); Hemoglobin 7.7 g/dl (14.0-18.0); Lymphocyte % 7.9 % (25-47); Mean Corpuscular HGB Conc 34 g/dl (31-36); Mean Corpuscular Hemoglobin 31 pg (27-31); Mean Corpuscular Volume 94 fL (80-94); Mean Platelet Volume 8.4 um3 (7.4-10.4); Nucleated Red Blood Cells % 0; Platelet Count 113 10^3/ul (150-450); Red Blood Count 2.45 10^6/ul (4.0-5.4); Red Cell Distribution Width 16 % (10.5-15)
[2017-08-10 06:28] LABS: EGFR Non-African American 56.1 (>60)
[2017-08-10] MEDS: Tiotropium CAP.INH* CAP.INH/18 MCG (USE ORDER SET !) INH SCH (07:28)
[2017-08-10] MEDS: Albuterol 2.5 MG/3 ML NEB.SOL* (0.083%) INH PRN ×3 (08:05→22:34)
[2017-08-10] MEDS ORDERED: Spiriva Inhaler DEVICE* 1 EACH DEVICE INH ONE (09:00)
[2017-08-10] MEDS: Gabapentin CAP(*) 300 MG PO SCH ×2 (09:04→22:27)
[2017-08-10] MEDS: Losartan TAB* 25 MG PO SCH (09:04)
[2017-08-10] MEDS: Atenolol TAB* 50 MG PO SCH (09:04)
[2017-08-10] MEDS: CMCS: Pantoprazole TAB (NF) 40 MG TAB PO SCH (09:04)
[2017-08-10] MEDS: Aspirin EC TAB* 81 MG TAB.EC PO SCH (09:04)
--- NOTE | 2017-08-10 10:15 | PN ---
Subjective Date of Service: 08/10/17 Interval History: Pt stated that his went to [facility] and he stayed in the car for approx 1 hr. [place] hot and started "panting", later on was too weak to get out of the car to grt home Objective Active Medications: Acetaminophen (Tylenol Tab*) 650 mg PO Q6H PRN PRN Reason: FEVER/PAIN Albuterol (Ventolin 2.5 Mg/3 Ml Neb.Jane*) 2.5 mg INH Q2H PRN PRN Reason: SOB/WHEEZING Last Admin: 08/10/17 08:05 Dose: 2.5 mg Aspirin (Aspirin Ec Tab*) 81 mg PO QAM [facility] Last Admin: 08/10/17 09:04 Dose: 81 mg Atenolol (Tenormin Tab*) 25 mg PO DAILY [facility] Last Admin: 08/10/17 09:04 Dose: 25 mg Clopidogrel Bisulfate (Plavix Tab*) 75 mg PO QPM [facility] Docusate Sodium (Colace Liq*) 250 mg PO QPM [facility] Duloxetine HCl (Cymbalta Cap*) 40 mg PO QPM [facility] Gabapentin (Neurontin Cap(*)) 900 mg PO BID [facility] Last Admin: 08/10/17 09:04 Dose: 900 mg Ceftriaxone Sodium 2 gm/ (Sodium Chloride) 100 mls @ 200 mls/hr IVPB Q12H [facility] Last Admin: 08/10/17 02:11 Dose: 200 mls/hr Vancomycin HCl 1,000 mg/ (Sodium Chloride) 250 mls @ 166.667 mls/hr IVPB Q12H [facility] Levothyroxine Sodium (Synthroid Tab*) 112 mcg PO 0600 [facility] Last Admin: 08/10/17 05:55 Dose: 112 mcg Losartan Potassium (Cozaar Tab*) 50 mg PO QAM [facility] Last Admin: 08/10/17 09:04 Dose: 50 mg Melatonin (Melatonin) 3 mg PO BEDTIME PRN; Protocol PRN Reason: Sleep Mometasone Furoate/Formoterol Fumar (Dulera 200/5 Mdi*) 2 puff INH BID [facility] Last Admin: 08/10/17 07:28 Dose: Not Given Ondansetron HCl (Zofran Odt Tab*) 4 mg PO Q6H PRN PRN Reason: n/v Pantoprazole Sodium (Protonix Tab (Nf)) 40 mg PO QAM [facility] Last Admin: 08/10/17 09:04 Dose: 40 mg Pharmacy Consult (Vancomycin Per Pharmacy*) 1 note FOLLOW UP .VANC PER PHARMACY [facility] Pharmacy Profile Note (Vancomycin Trough Check) 1 note FOLLOW UP 1030 ONE Stop: 08/11/17 10:31 Rosuvastatin Calcium (Crestor (Nf)) 20 mg PO QPM [facility] Tiotropium [place] (Spiriva Cap.Inh*) 1 cap INH DAILY [facility] Last Admin: 08/10/17 07:28 Dose: Not Given Vital Signs - 8 hr 08/10/17 08/10/17 08/10/17 02:18 02:19 03:52 Temperature 99.3 F 100.1 F Pulse Rate 89 78 Respiratory 18 20 22 Rate Blood Pressure 147/60 139/44 (mmHg) O2 Sat by Pulse 91 95 Oximetry 08/10/17 08/10/17 08/10/17 07:50 08:00 08:48 Temperature 98.9 F Pulse Rate 91 86 Respiratory 20 20 Rate Blood Pressure 130/29 122/46 (mmHg) O2 Sat by Pulse 93 Oximetry 08/10/17 09:04 Temperature Pulse Rate Respiratory 20 Rate Blood Pressure (mmHg) O2 Sat by Pulse Oximetry Oxygen Devices in Use Now: Nasal Cannula Appearance: 86 yo M in nAD, aAOx3 Eyes: No Scleral Icterus, PERRLA Ears/Nose/Mouth/Throat: NL Teeth, Lips, Gums, Mucous Membranes Moist Neck: NL Appearance and Movements; NL JVP, Trachea Midline Respiratory: Symmetrical Chest Expansion and Respiratory Effort, Clear to Auscultation Cardiovascular: NL Sounds; No Murmurs; No JVD, RRR Abdominal: NL Sounds; No Tenderness; No Distention, No Hepatosplenomegaly Lymphatic: No Cervical Adenopathy Extremities: No Edema, No Clubbing, Cyanosis Skin: No Rash or Ulcers, No Nodules or Sclerosis Neurological: Alert and Oriented x 3, - - left leg weaker than R-as per pt chronic, due to neuropathy Result Diagrams: 08/10/17 05:36 08/10/17 05:36 Additional Lab and Data: Lab Results 08/09/17 08/09/17 08/09/17 Range/Units 17:52 17:56 17:56 WBC 14.5 H (3.5-10.8) 10^3/ul RBC 3.47 L (4.0-5.4) 10^6/ul Hgb 10.9 L (14.0-18.0) g/dl Hct 33 L (42-52) % MCV 94 (80-94) fL MCH 32 H (27-31) pg MCHC 33 (31-36) g/dl RDW 16 H (10.5-15) % Plt Count 174 (150-450) 10^3/ul MPV 8.4 (7.4-10.4) um3 Neut % (Auto) 89.7 H (38-83) % Lymph % (Auto) 4.5 L (25-47) % [place] % (Auto) 4.6 (0-7) % Eos % (Auto) 0.8 (0-6) % Baso % (Auto) 0.4 (0-2) % Absolute Neuts (auto) 13.0 H (1.5-7.7) 10^3/ul Absolute Lymphs (auto) 0.6 L (1.0-4.8) 10^3/ul Absolute Monos (auto) 0.7 (0-0.8) 10^3/ul Absolute Eos (auto) 0.1 (0-0.6) 10^3/ul Absolute Basos (auto) 0.1 (0-0.2) 10^3/ul Absolute Nucleated RBC 0 10^3/ul Nucleated RBC % 0 INR (Anticoag Therapy) 1.01 (0.77-1.02) APTT 20.8 L (26.0-36.3) seconds Sodium (139-145) mmol/L Potassium (3.5-5.0) mmol/L Chloride (101-111) mmol/L Carbon Dioxide (22-32) mmol/L Anion Gap (2-11) mmol/L BUN (6-24) mg/dL Creatinine (0.67-1.17) mg/dL Est GFR ( Amer) (>60) Est GFR (Non-Af Amer) (>60) BUN/Creatinine Ratio (8-20) Glucose (70-100) mg/dL Lactic Acid (0.5-2.0) mmol/L Calcium (8.6-10.3) mg/dL Total Bilirubin (0.2-1.0) mg/dL AST (13-39) U/L ALT (7-52) U/L Alkaline Phosphatase (34-104) U/L Troponin I (<0.04) ng/mL Total Protein (6.4-8.9) g/dL Albumin (3.2-5.2) g/dL Globulin (2-4) g/dL Albumin/Globulin Ratio (1-3) Triglycerides mg/dL Cholesterol mg/dL LDL Cholesterol mg/dL HDL Cholesterol mg/dL Urine Color Yellow Urine Appearance Clear Urine pH 5.0 (5-9) Ur Specific [place] 1.014 (1.010-1.030) Urine Protein 1+(30 mg/dl) A (Negative) Urine Ketones Negative (Negative) Urine Blood 1+ A (Negative) Urine Nitrate Negative (Negative) Urine Bilirubin Negative (Negative) Urine Urobilinogen Negative (Negative) Ur Leukocyte Esterase Negative (Negative) Urine WBC (Auto) Trace(0-5/hpf) (Absent) Urine RBC (Auto) 1+(3-5/hpf) A (Absent) Urine Bacteria Absent (Absent) Urine Glucose Negative (Negative) Blood Type Antibody Screen Antibody Identification Direct Antiglob Test 08/09/17 08/09/17 08/09/17 Range/Units 17:56 17:56 17:56 WBC (3.5-10.8) 10^3/ul RBC (4.0-5.4) 10^6/ul Hgb (14.0-18.0) g/dl Hct (42-52) % MCV (80-94) fL MCH (27-31) pg MCHC (31-36) g/dl RDW (10.5-15) % Plt Count (150-450) 10^3/ul MPV (7.4-10.4) um3 Neut % (Auto) (38-83) % Lymph % (Auto) (25-47) % [place] % (Auto) (0-7) % Eos % (Auto) (0-6) % Baso % (Auto) (0-2) % Absolute Neuts (auto) (1.5-7.7) 10^3/ul Absolute Lymphs (auto) (1.0-4.8) 10^3/ul Absolute Monos (auto) (0-0.8) 10^3/ul Absolute Eos (auto) (0-0.6) 10^3/ul Absolute Basos (auto) (0-0.2) 10^3/ul Absolute Nucleated RBC 10^3/ul Nucleated RBC % INR (Anticoag Therapy) (0.77-1.02) APTT (26.0-36.3) seconds Sodium 136 L (139-145) mmol/L Potassium 4.5 (3.5-5.0) mmol/L Chloride 102 (101-111) mmol/L Carbon Dioxide 21 L (22-32) mmol/L Anion Gap 13 H (2-11) mmol/L BUN 31 H (6-24) mg/dL Creatinine 1.19 H (0.67-1.17) mg/dL Est GFR ( Amer) 74.9 (>60) Est GFR (Non-Af Amer) 58.2 (>60) BUN/Creatinine Ratio 26.1 H (8-20) Glucose 186 H (70-100) mg/dL Lactic Acid 2.2 H* (0.5-2.0) mmol/L Calcium 9.8 (8.6-10.3) mg/dL Total Bilirubin 0.60 (0.2-1.0) mg/dL AST 19 (13-39) U/L ALT 14 (7-52) U/L Alkaline Phosphatase 60 (34-104) U/L Troponin I 0.02 (<0.04) ng/mL Total Protein 8.2 (6.4-8.9) g/dL Albumin 4.6 (3.2-5.2) g/dL Globulin 3.6 (2-4) g/dL Albumin/Globulin Ratio 1.3 (1-3) Triglycerides 84 mg/dL Cholesterol 111 mg/dL LDL Cholesterol 63 mg/dL HDL Cholesterol 31.4 mg/dL Urine Color Urine Appearance Urine pH (5-9) Ur Specific [place] (1.010-1.030) Urine Protein (Negative) Urine Ketones (Negative) Urine Blood (Negative) Urine Nitrate (Negative) Urine Bilirubin (Negative) Urine Urobilinogen (Negative) Ur Leukocyte Esterase (Negative) Urine WBC (Auto) (Absent) Urine RBC (Auto) (Absent) Urine Bacteria (Absent) Urine Glucose (Negative) Blood Type O Positive Antibody Screen Positive Antibody Identification Pending Direct Antiglob Test Pending Microbiology and Other Data: Microbiology 08/09/17 21:30 Influenza Types A,B Antigen (FREDY) - Final Nasal Specimen received for Influenza A/B Molecular testing Assess/Plan/Problems-Billing Assessment: 86 yo M with h/o: AVR which he reports is mechanical but denies being placed on anticoagulation CAD/CABG PAOD s/p LLE revascularization being monitored for R carotid stenosis HTN HLD hypothyroidism prostate CA s/p radio-TX & leupron CKD stg 3 anemia of chronic disease PUD lumbar radiculopathy with left leg weakness and pain in left great toe presented with generalized weakness and fever 105 - Patient Problems (1) SIRS (systemic inflammatory response syndrome) Comment: so far no source noted. Heat stroke? on broad spectrum antibiotics. Dr. Marques consulted Karla honeycutt in ED due to r/o CVA, will d/c today d/c IVF-got over 4 L on IVF at night (2) Anemia Comment: - H/H is lower today than on admission, possibly due to 4 L IVF tx since admission, but will check guaiac. - He has a h/o a peptic ulcer in the past -h/o chronic anemia, baseline Hb 10 (3) CAD (coronary artery disease) Comment: -Continue home medication regimen. (4) HTN (hypertension) Comment: - BP is under good control. (5) Hypothyroidism Comment: - Continue current dose of synthroid. (6) DVT prophylaxis Comment: - SQ heparin. Status and Disposition: inpatient
[2017-08-10] MEDS: Vancomycin(*) 1,000 MG in NS 0.9% 250 ML* 250 ML IVPB SCH ×2 (10:55→22:28)
--- NOTE | 2017-08-10 11:05 | RAD ---
HISTORY: ?infiltrate, shortness of breath COMPARISONS: August 09, 2017 VIEWS: 4: Frontal dual-energy and lateral views of the chest. FINDINGS: CARDIOMEDIASTINAL SILHOUETTE: The cardiomediastinal silhouette is normal. A vascular stent is noted overlying the aortic outflow tract. LEONARDA: The leonarda are normal. PLEURA: The costophrenic angles are sharp. No pleural abnormalities are noted. LUNG PARENCHYMA: There is patchy alveolar opacification of the lower lungs bilaterally. There is hyperinflation. ABDOMEN: The upper abdomen is clear. There is no subphrenic gas. BONES AND SOFT TISSUES: The patient is status post median sternotomy. The patient is status post right shoulder arthroplasty. OTHER: None. IMPRESSION: 1. PATCHY AIRSPACE DISEASE OF THE LOWER LUNGS BILATERALLY. 2. HYPERINFLATION CONSISTENT WITH COPD.
[2017-08-10] MEDS: Heparin VIAL(*) 5000 UNITS/ML VIAL (FIVE THOUSAND) SUBCUT SCH ×2 (12:47→22:28)
[2017-08-10] MEDS ORDERED: ACYCLOVIR IVPB SCH (13:30)
[2017-08-10] MEDS ORDERED: NS 0.9% IVPB SCH (13:30)
[2017-08-10] MEDS ORDERED: Clopidogrel TAB* 75 MG PO SCH (18:00)
[2017-08-10] MEDS ORDERED: Docusate LIQ* 100 MG/10 ML UDC PO SCH (18:00)
[2017-08-10] MEDS ORDERED: DULoxetine DR CAP* 20 MG CAP.DR PO SCH (18:00)
[2017-08-10] MEDS ORDERED: CMCS: Rosuvastatin (NF) 20 MG TAB PO SCH (18:00)
--- NOTE | 2017-08-10 18:44 | CONS ---
CONSULTATION REPORT: DATE OF CONSULT: 08/10/17 REQUESTING PHYSICIAN: Dr. Franco. CONSULTING SERVICE: Infectious Disease. REASON FOR CONSULTATION: Fever. IMPRESSION: 1. Sudden onset fever and rigors, yesterday with malaise. He has also had about a month of malaise, with decreased energy. He has had a cough and some hypoxia here, which responded to supplemental oxygen. X-ray was unremarkable, overall though does raise the question of community-acquired pneumonia. Urinalysis is benign and he has no urinary symptoms. No sinus or headache currently and he had an unremarkable lumbar puncture yesterday. At this time of the year, tick-borne infections are a consideration including Lyme despite lack of rash, anaplasmosis is more common now in this area though he has no leukopenia, thrombocytopenia, or transaminitis, so I think less likely. He had his hemoglobin drop from 10 to 7, that could have been initial hemoconcentration , dehydration, versus blood loss, which there is no evidence of currently, versus hemolysis seems less likely, though does raise the question of babesiosis. His bilirubin is normal, so I think it is overall unlikely. Taken together, pneumonia seems most likely. 2. He has a prosthetic heart valve. Blood cultures are negative to date. We will await those as infectious endocarditis is a consideration. 3. Status post right shoulder arthroplasty, which is asymptomatic. 4. Chronic kidney disease. RECOMMENDATION: 1. Continue vancomycin, ceftriaxone. We will stop the Levaquin and the acyclovir. 2. Await blood cultures, obtain a chest x-ray, PA and lateral, to reevaluate for infiltrate after his hydration and the lateral view as well. HISTORY OF PRESENT ILLNESS: This is an 86-year-old male with a prosthetic heart valve admitted with fever and rigors. They came on suddenly while sitting in the parking lot, waiting for his in the store. He could not stop the shaking. They came to the hospital yesterday afternoon. Brain CT showed no acute changes. Chest x-ray showed no acute changes. Blood cultures were sent, they are negative to date. Influenza PCR was negative. He had a lumbar puncture, which showed 2 white blood cells and slightly elevated protein. Gram stain showed no organisms. Urinalysis shows 1+ blood. White count of 15; hemoglobin dropped from 10 to 7. He has noted a cough for a couple of days with a little bit of more shortness of breath over the last few days. He does not use any inhalers at home. He is breathing more comfortably now on oxygen. He has no chest pain. He has had a cough, occasionally productive, this morning with some blood streaks in the sputum. PAST MEDICAL HISTORY: 1. Status post aortic valve replacement, which he reports is mechanical though he is not anticoagulated. 2. Coronary artery disease, status post coronary artery bypass. 3. Peripheral artery disease, status post left lower extremity revascularization. 4. Hypertension. 5. Hyperlipidemia. 6. Hypothyroidism. 7. Prostate cancer, treated with radiation and Lupron. 8. Chronic kidney disease. 9. Anemia of chronic disease. 10. Peptic ulcer disease. 11. Status post right shoulder arthroplasty. 12. Status post aortic abdominal aneurysm repair. 13. Status post cholecystectomy. 14. Status post right inguinal hernia repair. MEDICATIONS: 1. Tylenol. 2. Albuterol. 3. Aspirin. 4. Atenolol. 5. Nicardipine x1 in the emergency room. 6. Ceftriaxone. 7. Plavix. 8. Duloxetine. 9. Gabapentin. 10. Levofloxacin 750 mg IV every 48 hours. 11. Levothyroxine. 12. Losartan. 13. Melatonin. 14. Pantoprazole. 15. Rosuvastatin. 16. Spiriva. 17. Vancomycin 1 g every 12 hours. 18. Acyclovir 850 mg every 12 hours. ALLERGIES: EPO, LIPITOR, and OXYCODONE. FAMILY HISTORY: No recurrent infections or tuberculosis. SOCIAL HISTORY: Lives in [place] with his . He spent this winter in [place], did not really get sick there, just came back 2 weeks ago. They have a pet dog. 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 No sick contacts. REVIEW OF SYSTEMS: All negative to 14-point review of systems except as noted above in the history of present illness. PHYSICAL EXAM: Vital Signs: Temperature 37, T-max 39, heart rate 90, respiratory rate 20, blood pressure 130/79, oxygen saturation 93% on 2 L. In general, he is awake, not in distress. Neurologic: He is oriented x3. Follows all commands. Moves all his extremities. Sensation is decreased to light touch in both feet. HEENT: There is no conjunctival hemorrhage. Oropharynx without lesions. Neck: Supple without mass. Lymph Nodes: There is no cervical, supraclavicular, inguinal, axillary, or epitrochlear lymphadenopathy. Heart: Regular rate and rhythm without murmurs, rubs or gallops. Lungs: Clear to auscultation bilaterally. There is no wheeze or rhonchi. Abdomen: Soft, nontender, nondistended. There are bowel sounds present. Skin: There is no rash or splinter hemorrhages. Musculoskeletal: There is no spinal tenderness to palpation or joint synovitis. DIAGNOSTIC STUDIES/LAB DATA: Creatinine 1.2. Lactate 1 down from 2. White blood cell count 15, hemoglobin 7, MCV 94, platelets 113. Spinal fluid: 2 white cells, protein 70, glucose 105. Influenza PCR negative. Please see impressions and recommendations outlined above, which I have discussed with Dr. Franco. Thank you for asking me to see Mr. Leo in consultation. [id number]/[facility] #: [id number] MTDD
[2017-08-11 04:39] VITALS: BP 127/56
[2017-08-11] MEDS: Heparin VIAL(*) 5000 UNITS/ML VIAL (FIVE THOUSAND) SUBCUT SCH (07:13)
[2017-08-11] MEDS: Levothyroxine TAB* 112 MCG TAB PO SCH (07:14)
[2017-08-11] MEDS: Mometasone/Formoter 200/5 MDI INH SCH (07:29)
[2017-08-11] MEDS: Tiotropium CAP.INH* CAP.INH/18 MCG (USE ORDER SET !) INH SCH (07:29)
[2017-08-11] MEDS: Aspirin EC TAB* 81 MG TAB.EC PO SCH (07:49)
[2017-08-11] MEDS: Losartan TAB* 25 MG PO SCH (07:49)
[2017-08-11] MEDS: CMCS: Pantoprazole TAB (NF) 40 MG TAB PO SCH (07:49)
[2017-08-11] MEDS: Atenolol TAB* 50 MG PO SCH (07:49)
[2017-08-11] MEDS: Gabapentin CAP(*) 300 MG PO SCH (07:49)
[2017-08-11] MEDS: Vancomycin(*) 1,000 MG in NS 0.9% 250 ML* 250 ML IVPB SCH (08:44)
[2017-08-11] MEDS ORDERED: Vancomycin Trough Check NOTE FOLLOW UP ONE (10:30)
--- NOTE | 2017-08-11 13:00 | DS ---
CC: Dr. Moyer; Dr. Gonzalez * SUMMARY: DATE OF ADMISSION: 08/09/17 DATE OF : 08/11/17 TIME OF : 5:48 a.m. CAUSE OF : Sepsis due to maxillary sinusitis and cardiac arrest due to that. PRIMARY CARE PROVIDER: Dr. Moyer. SECONDARY DIAGNOSES: 1. History of aortic valve replacement. 2. History of coronary artery disease. 3. History of peripheral vascular disease including status post left leg revascularization and carotid stenosis. 4. Hypertension. 5. Dyslipidemia. 6. Hypothyroidism. 7. History of prostate cancer, status post radiation treatment. 8. Chronic kidney disease, stage 3. 9. Anemia of chronic disease. 10. Peptic ulcer disease. HOSPITALIZATION COURSE: Anjel Leo was an 86-year-old male who presented to the hospital on 08/09/17 stating that he stayed in a car on a parking lot of [employer] for too long and got "a heat stroke." When he presented to the hospital, his temperature was 105 degrees. He was unable to walk due to generalized weakness and initially he was called a fredrick elise for possibility of CVA, later on was ruled out when in the emergency department. Patient had chronic left lower extremity weakness due to lumbar spine radiculopathy. Patient's initial workup in the ED showed maxillary sinusitis, but failed to show any other source of infection. Patient was treated with intravenous fluids per sepsis protocol, placed on broad spectrum antibiotics. On 08/10/17, Dr. Marques saw the patient in consultation and adjusted patient's antibiotics. Please also note that patient had lumbar puncture on admission that showed mildly elevated protein and mildly elevated glucose, but otherwise unremarkable. There was a question if patient could have acquired Lyme. He came in from [place] to [place] to spend his summer here 2 weeks ago and he apparently walks in the outdoors. He does not remember a tick bite. Nevertheless, his vancomycin and ceftriaxone were continued after the infectious disease specialist saw the patient. During the day of 08/10/17 patient was comfortable, required 2 L of oxygen support. He was hemodynamically stable although he continued to have low-grade increase in temperature to a maximum of 100.6. During the nighttime, as per nurse's notes, patient had a couple of episodes of feeling anxious and tachycardia. He was on telemetry monitored bed. At 5:48 patient's environmental monitoring technician noticed the patient to be in asystole. ABC alert was called and Dr. Gonzalez evaluated the patient. It was noted that patient is a do not resuscitate and resuscitation at that point was not attempted. The patient's time of at that point was reported at 5:48 a.m. Later on in the morning, I discussed patient's hospitalization with patient's grieving family. It became apparent that we really do not know what the cause of was although patient did came in with sepsis and infection, but it would be unusual to have a temperature of 105 degrees from sinusitis. Apparently, patient had been "under the weather" for the past couple of weeks with some respiratory congestion and feeling generalized weakness. At this point, I offered to the patient's family an autopsy and they agreed and requested it. Please note that this is a short summary of the patient's hospitalization. Please refer to further medical records for details. TIME SPENT: Approximately 50 minutes was spent on patient's discharge. [id number]/[facility] #: [id number] MTDHorace
[2017-08-11] MEDS ORDERED: Levofloxacin 750 MG IVPREMIX(* 750 MG/150 ML BAG IVPB SCH (20:00)
== END 2017-08-11 05:48 | disposition expired | DRG 872 ==
LOC: ED 17:12 → UNDOADMIN 20:27 → MEDTELE 20:27 → UNDODISIN 08-11 05:48
PROVIDERS: ADMIT Hospitalist; ATTEND Internal Medicine
PROC: 009U3ZX Drainage of Spinal Canal, Percutaneous Approach, Diagnostic (ICD-10-PCS; principal; 2017-08-09)
DX: A41.9 Sepsis, unspecified organism (principal); E87.2 Acidosis; I13.0 Hypertensive heart and chronic kidney disease with heart failure and stage 1 through stage 4 chronic kidney disease, or unspecified chronic kidney disease; J32.0 Chronic maxillary sinusitis; I46.8 Cardiac arrest due to other underlying condition; I25.10 Atherosclerotic heart disease of native coronary artery without angina pectoris; I73.9 Peripheral vascular disease, unspecified; N18.3 Chronic kidney disease, stage 3 (moderate); E78.5 Hyperlipidemia, unspecified; E03.9 Hypothyroidism, unspecified; Z92.3 Personal history of irradiation; K27.9 Peptic ulcer, site unspecified, unspecified as acute or chronic, without hemorrhage or perforation; M54.16 Radiculopathy, lumbar region; I46.9 Cardiac arrest, cause unspecified; Z66 Do not resuscitate; I65.21 Occlusion and stenosis of right carotid artery; E66.3 Overweight; F32.9 Major depressive disorder, single episode, unspecified; I50.9 Heart failure, unspecified; J44.9 Chronic obstructive pulmonary disease, unspecified; G47.30 Sleep apnea, unspecified; M19.90 Unspecified osteoarthritis, unspecified site; H91.90 Unspecified hearing loss, unspecified ear; G62.9 Polyneuropathy, unspecified; Z96.611 Presence of right artificial shoulder joint; Z95.2 Presence of prosthetic heart valve; Z85.46 Personal history of malignant neoplasm of prostate; D63.1 Anemia in chronic kidney disease; Z95.1 Presence of aortocoronary bypass graft; Z88.5 Allergy status to narcotic agent; Z88.8 Allergy status to other drugs, medicaments and biological substances; Z98.42 Cataract extraction status, left eye; Z98.41 Cataract extraction status, right eye; Z90.49 Acquired absence of other specified parts of digestive tract; Z87.891 Personal history of nicotine dependence; Z68.30 Body mass index [BMI] 30.0-30.9, adult; Z97.4 Presence of external hearing-aid; Z98.49 Cataract extraction status, unspecified eye; Z82.49 Family history of ischemic heart disease and other diseases of the circulatory system
CPT/HCPCS: 36415; 70450; 70496; 70498; 71045; 71046; 80048; 80053; 80061; 81003; 81015; 82272; 82945; 83605; 84153; 84157; 84484; 85025; 85610; 85730; 86140; 86850; 86870; 86880; 86900; 86901; 86905; 87040; 87070; 87086; 87205; 87502; 89051; 93005; 94640; 94660; 99285; A9270-GY; G0103; J0133; J0696; J1644; J2543; J3370; Q9967